=== PATIENT | female | born 1995 | race Two or more races ===

== ENCOUNTER 2022-03-12 15:16 | Emergency (ER) | payer MEDICAID, OTHER | END 2022-03-12 16:25 | disposition left against medical advice (07) | LOC: ER 15:16 | DX: M25.539 Pain in unspecified wrist (principal); Z53.21 Procedure and treatment not carried out due to patient leaving prior to being seen by health care provider ==

== ENCOUNTER 2022-08-10 12:36 | Emergency (ER) | payer MEDICAID, OTHER ==
[~2022-08-10] VITALS: Ht 152.4 cm; Wt 64.9 kg
[2022-08-10 13:35] VITALS: BP 115/57
[2022-08-10] MEDS ORDERED: IBUP600T27 PO (14:14)
== END 2022-08-10 14:22 | disposition home or self-care (01) ==
LOC: ER 12:36
DX: S39.012A Strain of muscle, fascia and tendon of lower back, initial encounter (principal); S63.502A Unspecified sprain of left wrist, initial encounter; V43.52XA Car driver injured in collision with other type car in traffic accident, initial encounter; Y93.89 Activity, other specified; Y92.410 Unspecified street and highway as the place of occurrence of the external cause; Y99.8 Other external cause status
CPT/HCPCS: 72100

== ENCOUNTER 2023-06-08 11:08 | Emergency (ER) | payer MEDICAID, OTHER ==
[~2023-06-08] VITALS: Ht 152.4 cm; Wt 63.0 kg
[~2023-06-08 11:08] MED LIST: IBUP-1454 PO
[2023-06-08 13:15] VITALS: BP 108/70; PULSE 93; RESP 16; O2SAT 97
[2023-06-08] MEDS ORDERED: METH-1181 PO (13:19)
[2023-06-08] MEDS ORDERED: IBUP-1454 PO (13:19)
== END 2023-06-08 13:27 | disposition home or self-care (01) ==
LOC: ER 11:08
DX: S39.012A Strain of muscle, fascia and tendon of lower back, initial encounter (principal); Z79.899 Other long term (current) drug therapy; X58.XXXA Exposure to other specified factors, initial encounter; Y93.89 Activity, other specified; Y92.59 Other trade areas as the place of occurrence of the external cause; Y99.8 Other external cause status

== ENCOUNTER 2023-08-29 04:55 | Emergency (ER) | payer MEDICAID, OTHER ==
[~2023-08-29] VITALS: Ht 152.4 cm; Wt 67.1 kg
[~2023-08-29 04:55] MED LIST changes: +METH-1181 PO
[2023-08-29 05:24] VITALS: BP 105/79; PULSE 67; RESP 20; TEMP 97.9; O2SAT 99
[2023-08-29] MEDS ORDERED: KETOROLAC TROMETH 30 MG/ML 1ML VIAL IM ONE (05:30)
== END 2023-08-29 05:47 | disposition home or self-care (01) ==
LOC: ER 04:55
DX: M54.2 Cervicalgia (principal)
CPT/HCPCS: 96372; 99283; J1885

== ENCOUNTER 2023-10-17 05:58 | Emergency (ER) | payer SELFPAY ==
[~2023-10-17] VITALS: Ht 152.4 cm; Wt 63.0 kg
[2023-10-17 06:06] VITALS: BP 107/73; PULSE 86; RESP 20; O2SAT 100
== END 2023-10-17 06:58 | disposition left against medical advice (07) ==
LOC: ER 05:58
DX: R05.9 Cough, unspecified (principal); R10.31 Right lower quadrant pain; Z53.21 Procedure and treatment not carried out due to patient leaving prior to being seen by health care provider